=== PATIENT | female | born 1980 | race Hispanic/Latino ===

== ENCOUNTER 2020-09-15 22:39 | Emergency (ER) | payer OTHER ==
[~2020-09-15] VITALS: Ht 165.1 cm; Wt 127.0 kg
[2020-09-15] MEDS ORDERED: KETOROLAC 30MG VIAL (30MG/ML) IM ONE (23:00)
[2020-09-15 23:02] VITALS: BP 161/106
[2020-09-15] MEDS ORDERED: KETOROLAC 30MG VIAL (30MG/ML) ONE (23:11)
[2020-09-16] VITALS: BP 138/79
== END 2020-09-16 00:06 | disposition home or self-care (01) ==
LOC: EDH 23:20
DX: S09.90XA Unspecified injury of head, initial encounter (principal); Z91.013 Allergy to seafood; Y08.89XA Assault by other specified means, initial encounter; Y93.89 Activity, other specified; Y92.89 Other specified places as the place of occurrence of the external cause; Y99.8 Other external cause status
CPT/HCPCS: 81025; 96372; 99283; J1885